=== PATIENT | male | born 2005 | race Two or more races ===

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

== ENCOUNTER 2024-08-04 15:19 | Emergency (ER) | payer MEDICAID ==
[~2024-08-04] VITALS: Ht 177.8 cm; Wt 73.0 kg
[2024-08-04 17:09] VITALS: BP 156/80; PULSE 113; RESP 16; TEMP 98; O2SAT 100
[2024-08-04] MEDS: HYDROcodone-ACET 7.5/325MG TAB PO ONE (17:43)
[2024-08-04] MEDS ORDERED: NAPR-957 PO (18:08)
[2024-08-04] MEDS ORDERED: LIDO5DIS21 TOP (18:08)
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
== END 2024-08-04 19:03 | disposition home or self-care (01) ==
LOC: EDUNIT# 15:19 → EDBD 15:19 → ER 15:28
DX: R51.9 Headache, unspecified (principal); M54.2 Cervicalgia; M54.50 Low back pain, unspecified; Z79.899 Other long term (current) drug therapy; V89.2XXA Person injured in unspecified motor-vehicle accident, traffic, initial encounter; Y93.89 Activity, other specified; Y92.410 Unspecified street and highway as the place of occurrence of the external cause; Y99.8 Other external cause status
CPT/HCPCS: 70450; 70486; 72070; 72100; 72125; 82947